=== PATIENT | female | born 1980 | race Caucasian/White ===

== ENCOUNTER 2020-04-21 09:09 | Emergency (ER) | payer SELFPAY ==
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
[2020-04-21] MEDS ORDERED: LORazepam 2 MG/ML SDV IVPUSH ONE (10:49)
[2020-04-21] MEDS ORDERED: Dextrose 5%-0.9% NaCl 1,000 ML IV SCH (11:00)
[2020-04-21 11:55] LABS: ACETAMINOPHEN 0 ug/mL (10-30)
== END 2020-04-21 14:00 ==
LOC: JD.ED 09:09
DX: F32.9 Major depressive disorder, single episode, unspecified (principal); E03.9 Hypothyroidism, unspecified; F41.9 Anxiety disorder, unspecified; Z79.899 Other long term (current) drug therapy
CPT/HCPCS: 36415; 80053; 80164; 80306; 80307; 81001; 81025; 83735; 84443; 85025; 93005; 96361; 96374; 99285; J2060; J7042; 93010

== ENCOUNTER 2020-12-15 02:31 | Emergency (ER) | payer OTHER ==
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
[2020-12-15 03:59] LABS: ACETAMINOPHEN 0 ug/mL (10-30)
--- NOTE | 2020-12-15 11:24 | CT ---
Head CT Technique: Multiple axial sections through the brain were obtained. Intravenous contrast was not utilized. Reconstructed coronal and sagittal images were obtained. Comparison: No prior intracranial imaging is available. Findings: Ventricles along with basal cisterns and sulci over the convexities appear within normal limits for the patient's age. No abnormal parenchymal densities are appreciated. No evidence of intracranial hemorrhage. No midline shift or mass-effect is seen. Bone window settings were reviewed which show no acute osseous finding. Visualized mastoid sinuses and visualized paranasal sinuses show nothing acute. Impression: 1. Nothing acute is appreciated on noncontrast head CT exam. Diagnostic code #1
== END 2020-12-15 12:05 ==
LOC: JD.ED 02:31
DX: F32.9 Major depressive disorder, single episode, unspecified (principal); E03.9 Hypothyroidism, unspecified; R41.0 Disorientation, unspecified; F41.9 Anxiety disorder, unspecified; F23 Brief psychotic disorder; Z20.822 Contact with and (suspected) exposure to COVID-19; Z79.899 Other long term (current) drug therapy
CPT/HCPCS: 36415; 70450; 70450-26; 80053; 80143; 80164; 80179; 80306; 80307; 81001; 82140; 84443; 84703; 85025; 99285; 99285-25; U0002